=== PATIENT | female | born 1950 | race Caucasian/White ===

== ENCOUNTER 2018-12-11 14:18 | Emergency (ER) | payer OTHER, BC ==
[~2018-12-11] VITALS: Ht 152.4 cm; Wt 66.2 kg
[2018-12-11] MEDS ORDERED: FORTAMET1000 MG (14:26)
[2018-12-11] MEDS ORDERED: ZIAC 10/6.25 MG1 TAB (14:27)
== END 2018-12-11 16:52 | disposition home or self-care (01) ==
LOC: ER 14:18
DX: S52.591A Other fractures of lower end of right radius, initial encounter for closed fracture (principal); W01.198A Fall on same level from slipping, tripping and stumbling with subsequent striking against other object, initial encounter; Y93.89 Activity, other specified; Y92.89 Other specified places as the place of occurrence of the external cause; Y99.8 Other external cause status